=== PATIENT | male | born 1970 | race Hispanic/Latino ===

== ENCOUNTER 2018-11-12 11:34 | Emergency (ER) | payer SELFPAY ==
[2018-11-12 12:26] LABS: Absolute Lymphocytes (CBC) 2.8 K/uL (0.7-4.9); Absolute Monocytes 0.7 K/uL (0.1-1.3); Absolute Neutrophil 6.8 K/uL (1.8-8.0); Basophils % 0.6 % (0-1.3); Eosinophils % 1.5 % (0-4.4); Hematocrit 45.9 % (39.6-49.0); Lymphocytes % 26.2 % (15.3-44.8); MPV 8.3 fL (7.6-11.3); RBC Red Blood Cell Count 5.12 M/uL (4.33-5.43)
[2018-11-12] MEDS ORDERED: NA CHLORIDE 0.9% 1,000 ML ONE (12:30)
[2018-11-12 12:31] LABS: Urine Bacteria NONE SEEN /HPF (NONE SEEN); Urine Culture Reflex Order NOT NEEDED; Urine RBC >50 /HPF (NONE SEEN)
[2018-11-12 12:31] LABS: Urine Blood 3+ (NEG); Urine Glucose NEGATIVE (NEG); Urine Protein 1+ (NEG); Urine Specific Gravity >1.030 (1.005-1.030); Urine pH 5.5 (5.0-7.0)
[2018-11-12 12:39] LABS: Albumin 4.1 g/dL (3.4-5.0); Bilirubin Direct 0.1 mg/dL (0-0.2); Bilirubin Total 0.4 mg/dL (0.2-1.0); Potassium 4.2 mmol/L (3.5-5.1); Protein, Total 7.2 g/dL (6.4-8.2)
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
== END 2018-11-12 13:44 | disposition home or self-care (01) ==
LOC: ER 11:34
DX: R31.9 Hematuria, unspecified (principal); F17.210 Nicotine dependence, cigarettes, uncomplicated
CPT/HCPCS: 36415; 80048; 80076; 81003; 81015; 82550; 83690; 85025; 99283; J7030

== ENCOUNTER 2019-03-31 11:58 | Emergency (ER) | payer SELFPAY ==
[2019-03-31] MEDS ORDERED: FENTANYL CITR 100 MCG/2 ML ONE (13:09)
[2019-03-31] MEDS ORDERED: LIDOCAINE 1% 20 ML MDV ONE (13:10)
[2019-03-31] MEDS ORDERED: BUPIVACAINE 0.25% PF 10 ML VIAL ONE (13:11)
[2019-03-31 13:31] LABS: Absolute Lymphocytes (CBC) 1.8 K/uL (0.7-4.9); Basophils % 0.2 % (0-1.3); Hematocrit 43.7 % (39.6-49.0); Lymphocytes % 12.1 % (15.3-44.8); MPV 8.2 fL (7.6-11.3); RBC Red Blood Cell Count 4.84 M/uL (4.33-5.43)
[2019-03-31 13:49] LABS: Albumin 3.9 g/dL (3.4-5.0); Bilirubin Total 0.6 mg/dL (0.2-1.0); Potassium 4.3 mmol/L (3.5-5.1); Protein, Total 7.5 g/dL (6.4-8.2)
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
[2019-03-31 17:23] VITALS: TEMP 98.6
[2019-03-31 17:26] VITALS: O2SAT 99
[2019-03-31 17:27] VITALS: BP 138/92
== END 2019-03-31 16:30 | disposition home or self-care (01) ==
LOC: ER 11:58
PROC: 0J9F0ZZ Drainage of Left Upper Arm Subcutaneous Tissue and Fascia, Open Approach (ICD-10-PCS; principal; 2019-03-31)
DX: L02.414 Cutaneous abscess of left upper limb (principal); F17.210 Nicotine dependence, cigarettes, uncomplicated
CPT/HCPCS: 36415; 80053; 85025; 87070; 87077; 87186; 87205; 96374; 99284; J3010